=== PATIENT | male | born 1995 | race Caucasian/White ===

== ENCOUNTER 2019-08-19 04:31 | Emergency (ER) | payer OTHER ==
[~2019-08-19] VITALS: Ht 185.4 cm; Wt 81.8 kg
[2019-08-19 06:32] VITALS: BP 149/75
== END 2019-08-19 06:34 | disposition home or self-care (01) ==
LOC: M ED 04:31
DX: L84 Corns and callosities (principal); T69.1XXA Chilblains, initial encounter; T33.821A Superficial frostbite of right foot, initial encounter; T33.822A Superficial frostbite of left foot, initial encounter; X31.XXXA Exposure to excessive natural cold, initial encounter; Y92.138 Other place on military base as the place of occurrence of the external cause; F17.220 Nicotine dependence, chewing tobacco, uncomplicated